=== PATIENT | female | born 1990 | race Caucasian/White ===

== ENCOUNTER 2019-06-28 23:42 | Emergency (ER) | payer OTHER ==
[2019-06-29 00:22] VITALS: TEMP 98.4; BMI 27.3
--- NOTE | 2019-06-29 00:35 | PDOC ---
History of Present Illness - General History Source: Patient Exam Limitations: No Limitations - History of Present Illness Initial Comments: 06/29/19 00:51 28y previously healthy F presenting w 1 wk intermittent [place]ber[place] temporal headaches, fevers/chills, nausea, vomiting, lightheaded, midsternal chest pain, SOB, lower ABD pain, strong urine smell. Symptoms ongoing for past month but worsened over past week. Took 1 tylenol yesterday morning. Denies cough, diarrhea/constipation , vaginal discharge. <Te Barry - Last Filed: 06/29/19 03:51> <Rachel De Jesus - Last Filed: 06/29/19 04:19> - General Chief Complaint: Headache Stated Complaint: VOMITING,HEADACHE,URINARY PROBLEM Time Seen by Provider: 06/29/19 00:34 Past History - Past Medical History Anemia: Yes Cardiac Disorders: Yes (palpitations) Thyroid Disease: Yes (hypo) - Reproductive History (#): 1 Para: 0 Cervical CA: No Dysfunctional Uterine Bleeding: No Ectopic : No Endometrial CA: No Polycystic Ovaries: No Therapeutic (s) & number: Yes (1) Tubal Ligation: No Spontaneous : 0 - Psycho Social/Smoking Cessation Hx Smoking Status: No Smoking History: Never smoked Have you smoked in the past 12 months: No Number of Cigarettes Smoked Daily: 0 Information on smoking cessation initiated: No Hx Alcohol Use: No Drug/Substance Use Hx: No Substance Use Type: None <Te Barry - Last Filed: 06/29/19 03:51> <Rachel De Jesus - Last Filed: 06/29/19 04:19> - Past Medical History Allergies/Adverse Reactions: Allergies Allergy/AdvReac Type Severity Reaction Status Date / Time No Known Allergies Allergy Verified 06/29/19 00:20 Home Medications: Ambulatory Orders Vit/Iron Fumarate/FA [ Tablet] 1 tab PO DAILY 01/04/15 Cephalexin [Keflex] 500 mg PO BID 5 Days #10 capsule 06/29/19 Review of Systems - Review of Systems Constitutional: Yes: Chills, Fever HEENTM: No: Recent change in vision, Nose Pain, Throat Pain Respiratory: Yes: Shortness of Breath. No: Cough Cardiac (ROS): Yes: Chest Pain. No: Palpitations ABD/GI: Yes: Nausea, Vomiting. No: Abdominal Distended, Constipated, Diarrhea : No: Burning, Dysuria, Discharge Musculoskeletal: No: Back Pain, Joint Pain Integumentary: No: Bruising, Dryness Neurological: Yes: Headache. No: Seizure Psychiatric: No: Anxiety, Depression Endocrine: No: Intolerance to Cold, Intolerance to Heat Hematologic/Lymphatic: No: Anemia, Blood Clots <Te Barry - Last Filed: 06/29/19 03:51> *Physical Exam - Vital Signs Last Vital Signs Temp Pulse Resp BP Pulse Ox 98.4 F 90 20 119/80 100 06/29/19 00:20 06/29/19 00:20 06/29/19 00:20 06/29/19 00:20 06/29/19 00:20 - Physical Exam General Appearance: Yes: Nourished, Appropriately Dressed. No: Apparent Distress HEENT: positive: EOMI, ALYSSA, Normal Voice, Hearing Grossly Normal. negative: Scleral Icterus (R), Scleral Icterus (L), Nasal Congestion Respiratory/Chest: positive: Lungs Clear, Normal Breath Sounds. negative: Chest Tender, Respiratory Distress, Crackles, Rales, Rhonchi, Stridor, Wheezing Cardiovascular: positive: Regular Rhythm, Regular Rate, S1, S2. negative: Edema , Murmur Gastrointestinal/Abdominal: positive: Normal Bowel Sounds, Flat, Soft. negative : Tender, Organomegaly Extremity: positive: Normal Capillary Refill Integumentary: positive: Normal Color. negative: Dry, Rash Neurologic: positive: signals intelligence analysis manager II-XII NML intact, Fully Oriented, Alert, Normal Mood/ Affect, Normal Response, Motor Strength 5/5, Responsive. negative: Numbness, Confused, Disoriented <Te Barry - Last Filed: 06/29/19 03:51> - Vital Signs Last Vital Signs Temp Pulse Resp BP Pulse Ox 98.4 F 90 20 119/80 100 06/29/19 00:20 06/29/19 00:20 06/29/19 00:20 06/29/19 00:20 06/29/19 00:20 <Rachel De Jesus - Last Filed: 06/29/19 04:19> ED Treatment Course - LABORATORY CBC & Chemistry Diagram: 06/29/19 01:05 06/29/19 01:05 <Te Barry - Last Filed: 06/29/19 03:51> - LABORATORY CBC & Chemistry Diagram: 06/29/19 01:05 06/29/19 01:05 - ADDITIONAL ORDERS Additional order review: Laboratory Results 06/29/19 06/29/19 06/29/19 01:05 01:05 01:00 Sodium 140 Potassium 4.4 Chloride 109 H Carbon Dioxide 25 Anion Gap 5 L BUN 13.3 Creatinine 0.6 Est GFR (CKD-EPI)AfAm 144.78 Est GFR (CKD-EPI)NonAf 124.92 Random Glucose 85 Calcium 9.0 Total Bilirubin 0.6 AST 10 L ALT 13 Alkaline Phosphatase 73 Troponin I < 0.02 Total Protein 7.9 Albumin 4.0 Lipase 122 Urine Color Urine Appearance Urine pH Ur Specific Stoddard Urine Protein Urine Glucose (UA) Urine Ketones Urine Blood Urine Nitrite Urine Bilirubin Urine Urobilinogen Ur Leukocyte Esterase Urine WBC (Auto) Urine RBC (Auto) Urine Casts (Auto) U Epithel Cells (Auto) Urine Bacteria (Auto) Urine HCG, Qual Negative 06/29/19 01:00 Sodium Potassium Chloride Carbon Dioxide Anion Gap BUN Creatinine Est GFR (CKD-EPI)AfAm Est GFR (CKD-EPI)NonAf Random Glucose Calcium Total Bilirubin AST ALT Alkaline Phosphatase Troponin I Total Protein Albumin Lipase Urine Color Yellow Urine Appearance Clear Urine pH 6.0 Ur Specific Stoddard 1.010 Urine Protein Negative Urine Glucose (UA) Negative Urine Ketones Negative Urine Blood Negative Urine Nitrite Negative Urine Bilirubin Negative Urine Urobilinogen 1.0 Ur Leukocyte Esterase Trace Urine WBC (Auto) 4 Urine RBC (Auto) 1 Urine Casts (Auto) 0 U Epithel Cells (Auto) 1.1 Urine Bacteria (Auto) 10.7 Urine HCG, Qual 06/29/19 01:05 RBC 4.51 MCV 83.1 MCHC 32.4 RDW 12.7 MPV 9.1 Neutrophils % 51.2 Lymphocytes % 40.2 H Monocytes % 6.0 Eosinophils % 1.8 Basophils % 0.8 D - Medications Given in the ED: ED Medications Discontinued Medications Generic Name Dose Route Start Last Admin Trade Name Freq PRN Reason Stop Dose Admin Acetaminophen 1,000 mg 06/29/19 00:49 06/29/19 01:49 Ofirmev Injection - IVPB 06/29/19 00:50 1,000 mg ONCE ONE Administration Metoclopramide HCl 10 mg 06/29/19 00:49 06/29/19 01:49 Reglan Injection - IVPB 06/29/19 00:50 10 mg ONCE ONE Administration Sodium Chloride 1,000 ml 06/29/19 00:49 06/29/19 01:49 Normal Saline - IV 06/29/19 00:50 1,000 ml ONCE ONE Administration <Rachel De Jesus - Last Filed: 06/29/19 04:19> Medical Decision Making - Medical Decision Making 06/29/19 00:54 EKG - NSR, HR 79, QTc 410, TWI V1 CXR - clear lung wyatt, normal heart size --- 28y previously healthy F presenting w 1 wk intermittent [place] temporal headaches, fevers/chills, nausea, vomiting, lightheaded, midsternal chest pain, SOB, lower ABD pain, strong urine smell. No evidence of PNA vs UTI vs anemia vs Given 1L NS, tylenol, reglan DC home w PCP f/u and keflex <Te Barry - Last Filed: 06/29/19 03:51> Discharge - Discharge Information Problems reviewed: Yes - Admission No <Te Barry - Last Filed: 06/29/19 03:51> <Rachel De Jesus - Last Filed: 06/29/19 04:19> - Discharge Information Clinical Impression/Diagnosis: Chest pain Qualifiers: Chest pain type: unspecified Qualified Code(s): R07.9 - Chest pain, unspecified Headache Qualifiers: Headache type: cluster Headache chronicity pattern: episodic headache Intractability: not intractable Qualified Code(s): G44.019 - Episodic cluster headache, not intractable Condition: Improved Disposition: HOME - Additional Discharge Information Prescriptions: Cephalexin [Keflex] 500 mg PO BID 5 Days #10 capsule - Follow up/Referral Referrals: Ana Barahona [Primary Care Provider] - - Patient Discharge Instructions Additional Instructions: Take tylenol or ibuprofen if you have pain Take the prescribed keflex as directed Follow up with your primary care doctor. - Post Discharge Activity Work/Back to School Note: Back to Work
--- NOTE | 2019-06-29 00:40 | PDOC ---
Attending Attestation - Resident Resident Name: AshaTe - ED Attending Attestation I have performed the following: I have examined & evaluated the patient, The case was reviewed & discussed with the resident, I agree w/resident's findings & plan - HPI HPI: 06/29/19 20:19 Pt comes with headaches. She also complains of a strong odor in ther urine. No fevers, no chills and no flank pain. Pt has no vaginal discharge. - Physicial Exam PE: 06/29/19 20:20 Normal exam. Pt has normal HEENT. Tattoos on her eyelids etc. Afebrile chest normal heart RRR lungs CTAb abd soft NT ND +BS neuro exam is normal - Medical Decision Making 06/29/19 20:21 UA mildly + for UTI; pt will be rx'd for a UTI, as she has clinical symptoms
[2019-06-29] MEDS ORDERED: METOCLOPRAMIDE HCL INJECTION 10 MG/2 ML VIAL IVPB ONE (00:49)
[2019-06-29] MEDS ORDERED: SODIUM CHLORIDE 0.9% 500 ML INFUS.BAG IV ONE (00:49)
[2019-06-29] MEDS ORDERED: ACETAMINOPHEN 1000 MG/100 ML VIAL (NON FORMULARY) IVPB ONE (00:49)
[2019-06-29] MEDS ORDERED: METOCLOPRAMIDE HCL INJECTION 10 MG/2 ML VIAL ONE (00:59)
[2019-06-29] MEDS ORDERED: ACETAMINOPHEN INJECTION 100 ML IVPB ONE (01:00)
[2019-06-29 01:29] LABS: EPI CELLS 1.1 /HPF (0-5/HPF); HYALINE CASTS 0 /lpf (0-8); URINE APPEARANCE CLEAR; URINE BACTERIA 10.7 /hpf (NEGATIVE); URINE BILIRUBIN NEGATIVE (NEGATIVE); URINE COLOR YELLOW; URINE GLUCOSE (UA) NEGATIVE (NEGATIVE); URINE KETONE NEGATIVE (NEGATIVE); URINE LEUK ESTERASE TRACE (NEGATIVE); URINE NITRITE NEGATIVE (NEGATIVE); URINE PROTEIN NEGATIVE (NEGATIVE); URINE RBC 1 /hpf (0-4); URINE WBC 4 /hpf (0-5)
[2019-06-29 01:35] LABS: BASO % 0.8 % (0-2.0); EOS % 1.8 % (0-4.5); HEMATOCRIT 37.5 % (32.4-45.2); HEMOGLOBIN 12.1 GM/dL (10.7-15.3); LYMPH % 40.2 % (8-40); MCH 26.9 pg (25.7-33.7); MCHC 32.4 g/dl (32.0-36.0); MEAN CELL VOLUME 83.1 fl (80-96); MEAN PLT VOLUME 9.1 fl (7.5-11.1); NEUT % 51.2 % (42.8-82.8); PLATELET COUNT 301 K/MM3 (134-434); RBC 4.51 M/mm3 (3.60-5.2); RDW 12.7 % (11.6-15.6); WHITE BLOOD COUNT 8.9 K/mm3 (4.0-10.0)
[2019-06-29 02:04] LABS: BILIRUBIN,TOTAL 0.6 mg/dL (0.2-1); BLOOD UREA NITROGEN 13.3 mg/dL (7-18); CREATININE 0.6 mg/dL (0.55-1.3); POTASSIUM 4.4 mmol/L (3.5-5.1); TOT PROT 7.9 g/dl (6.4-8.2)
[2019-06-29] MEDS ORDERED: MAG HYDROX/AL HYDROX/SIMETH 30 ML UNIT-DOSE CUP PO ONE (04:17)
[2019-06-29] MEDS ORDERED: CEPHALEXIN MONOHYDRATE 500 MG CAPSULE (UD) PO ONE (04:18)
[2019-06-29] MEDS ORDERED: CEPHALEXIN MONOHYDRATE 500 MG CAPSULE (UD) ONE (04:31)
[2019-06-29] MEDS ORDERED: MAG HYDROX/AL HYDROX/SIMETH 30 ML UNIT-DOSE CUP ONE (04:31)
[2019-06-29 04:40] VITALS: BP 124/84; PULSE 84
--- NOTE | 2019-06-29 14:12 | EKG ---
Test Reason : Blood Pressure : / mmHG Vent. Rate : 079 BPM Atrial Rate : 079 BPM P-R Int : 160 ms QRS Dur : 076 ms QT Int : 358 ms P-R-T Axes : 059 037 021 degrees QTc Int : 410 ms NORMAL SINUS RHYTHM LOW VOLTAGE QRS BORDERLINE ECG Confirmed by MD MARICRUZ, DEMETRIA ([id number]) on 06/29/2019 2:12:02 PM Referred By: Confirmed By:DEMETRIA ALCANTARA MD
== END 2019-06-29 04:35 | disposition home or self-care (01) ==
LOC: JER 23:42
PROC: 3E033NZ Introduction of Analgesics, Hypnotics, Sedatives into Peripheral Vein, Percutaneous Approach (ICD-10-PCS; principal; 2019-06-28)
PROC: 3E033GC Introduction of Other Therapeutic Substance into Peripheral Vein, Percutaneous Approach (ICD-10-PCS; 2019-06-28)
DX: R07.9 Chest pain, unspecified (principal); G44.019 Episodic cluster headache, not intractable
CPT/HCPCS: 36415; 71046-TC-FY; 80053; 81003; 83690; 84484; 84703; 85025; 87086; 87186; 93005; 93010; 99283-25; J0131